=== PATIENT | female | born 1950 | race Asian ===

== ENCOUNTER 2016-05-26 22:15 | Inpatient (IN) | payer MEDICARE, MEDICAID ==
[~2016-05-26] VITALS: Ht 152.4 cm; Wt 36.3 kg
[2016-05-26 22:23] VITALS: BP 115/73
[2016-05-26] MEDS ORDERED: levETIRAcetam 500 MG in D5W 110 ML IVPB ONE (22:30)
[2016-05-26] MEDS ORDERED: levETIRAcetam 500mg vial IV ONE (22:34)
--- NOTE | 2016-05-26 22:35 | Emergency Room Report ---
History of Present Illness General Chief Complaint: Seizure Source: Family Member, Medical Record, EMS Present Illness HPI This is a 65-year-old Pashto female with a past medical history of developmental delay and seizure. She presents with chief complaint of seizure. Was tonic-clonic in activity. One time at home and also witnessed by EMS. They gave her Versed for sedation. Family does not know her medication at this moment in time. She was admitted to [facility] in November 2015. Was able to checked her chart there and she was on Keppra. There is no fever or chills but no nausea no vomiting. No change in medication. She is compliant. History is through EMS and her sister and nephew. Allergies: Coded Allergies: LEVOFLOXACIN (Verified Allergy, Unknown, 05/26/16) Patient History Past Medical History: see triage record, old chart reviewed, seizures Past Surgical History: other Pertinent Family History: none Social History: Denies: smoking Now: No Immunizations: other Reviewed Nursing Documentation: PMH: Agreed, PSxH: Agreed Nursing Documentation-PMH Hx Hypertension: Yes Hx Seizures: Yes Review of Systems Eye: Denies: blurred vision, eye pain ENT: Denies: ear pain, nose congestion, throat swelling Respiratory: Denies: cough, shortness of breath Cardiovascular: Denies: chest pain, palpitations Gastrointestinal: Denies: abdominal pain, diarrhea, nausea, vomiting Musculoskeletal: Denies: back pain, joint pain Skin: Denies: rash Neurological: Denies: headache, numbness Endocrine: Denies: increased thirst, increased urine Hematologic/Lymphatic: Denies: easy bruising All Other Systems: negative except mentioned in HPI Physical Exam Vital Signs Date Time Temp Pulse Resp B/P Pulse Ox O2 Delivery O2 Flow Rate FiO2 05/26/16 22:05 100.9 105 25 118/64 98 Room Air vitals with low-grade fever Sp02 EP Interpretation: reviewed, normal General Appearance: thin Head: normocephalic, atraumatic Eyes: bilateral eye EOMI, bilateral eye PERRL ENT: hearing grossly normal, normal pharynx Neck: full range of motion, supple, no meningismus Respiratory: chest non-tender, lungs clear, normal breath sounds Cardiovascular #1: regular rate, rhythm, no murmur Gastrointestinal: normal bowel sounds, non tender, no mass, no organomegaly, no bruit, non-distended Musculoskeletal: back normal, normal range of motion Neurologic: grossly normal Skin: warm/dry Procedures Critical Care Time Critical Care Time Critical care is mandated in this patient who presented with status epilepticus. Patient require my urgent intervention to attenuate the risks of neurological collapse which may lead to cardiovascular collapse and . Critical care time is 35 minutes excluding any reportable procedure. Critical care time included evaluation, multiple reevaluation, looking at old charts, interpreting laboratory and diagnostic data, discussing case with patient and family and consultants, and charting. Medical Decision Making Diagnostic Impression: Primary Impression: Epileptic seizure, generalized Additional Impressions: UTI (urinary tract infection) Qualified Codes: N30.00 - Acute cystitis without hematuria Anemia of chronic illness Status epilepticus ER Course Patient presents with seizure activity. This most likely secondary to infection. I gave her antibiotics for her UTI. I also gave her extra dose of Keppra. Family finally brought her medication and she is currently on Depakote also. I gave her a dose of Depakote here. She was doing well for several hours. Was becoming more responsive and back to baseline. She actually slept through the night. Her sister came to pick her up at 5:30 AM. She then proceeded to have a tonic-clonic seizure activity witnessed by me and her sister. This broke with Ativan. Because of this, I will keep her in the hospital for further monitoring. Laboratory Tests Test 05/26/16 22:20 05/26/16 23:13 White Blood Count 11.6 K/UL (4.8-10.8) H Red Blood Count 3.68 M/UL (4.20-5.40) L Hemoglobin 11.5 G/DL (12.0-16.0) L Hematocrit 36.7 % (37.0-47.0) L Mean Corpuscular Volume 100 FL (80-99) H Mean Corpuscular Hemoglobin 31.2 PG (27.0-31.0) H Mean Corpuscular Hemoglobin Concent 31.3 G/DL (32.0-36.0) L Red Cell Distribution Width 12.3 % (11.6-14.8) Platelet Count 133 K/UL (150-450) L Mean Platelet Volume 7.9 FL (6.5-10.1) Neutrophils (%) (Auto) 79.3 % (45.0-75.0) H Lymphocytes (%) (Auto) 10.3 % (20.0-45.0) L Monocytes (%) (Auto) 8.6 % (1.0-10.0) Eosinophils (%) (Auto) 0.1 % (0.0-3.0) Basophils (%) (Auto) 1.7 % (0.0-2.0) Sodium Level 140 mEQ/L (135-145) Potassium Level 3.7 mEQ/L (3.4-4.9) Chloride Level 100 mEQ/L (98-107) Carbon Dioxide Level 25 mEQ/L (20-30) Anion Gap 15 (5-15) Blood Urea Nitrogen 15 mg/dL (7-23) Creatinine 0.8 mg/dL (0.5-0.9) Estimat Glomerular Filtration Rate > 60 mL/min (>60) Glucose Level 151 mg/dL (74-106) H Calcium Level 9.0 mg/dL (8.6-10.2) Total Bilirubin 0.4 mg/dL (0.0-1.2) Aspartate Amino Transf (AST/SGOT) 28 U/L (5-40) Alanine Aminotransferase (ALT/SGPT) 9 U/L (3-33) Alkaline Phosphatase 46 U/L (35-104) Total Protein 6.9 g/dL (6.6-8.7) Albumin 3.6 g/dL (3.5-5.2) Globulin 3.3 g/dL Albumin/Globulin Ratio 1.0 (1.0-2.7) Urine Color Pale yellow Urine Appearance Slightly cloudy Urine pH 8 (4.5-8.0) Urine Specific [place] 1.010 (1.005-1.035) Urine Protein 1+ (NEGATIVE) H Urine Glucose (UA) Negative (NEGATIVE) Urine Ketones Negative (NEGATIVE) Urine Occult Blood 5+ (NEGATIVE) H Urine Nitrite Positive (NEGATIVE) H Urine Bilirubin Negative (NEGATIVE) Urine Urobilinogen Normal MG/DL (0.0-1.0) Urine Leukocyte Esterase 1+ (NEGATIVE) H Urine RBC 30-40 /HPF (0 - 2) H Urine WBC 5-10 /HPF (0 - 2) H Urine Squamous Epithelial Cells Few /LPF (NONE/OCC) Urine Bacteria Many /HPF (NONE) H Lab Results Impression labs unremarkable EKG Diagnostic Results Rate: normal Rhythm: NSR ST Segments: no acute changes Rhythm Strip Diag. Results EP Interpretation: yes Rate: 88 Rhythm: NSR, no PVC's, no ectopy Last Vital Signs Date Time Temp Pulse Resp B/P Pulse Ox O2 Delivery O2 Flow Rate FiO2 05/26/16 22:23 98.5 97 22 115/73 98 Room Air Status: improved Disposition: ADMITTED INPATIENT Condition: Serious OWEN LAGUERRE M.D. May 26, 2016 22:35
[2016-05-26 22:46] LABS: BASOPHILS % (AUTO) 1.7 % (0.0-2.0); EOSINOPHILS % (AUTO) 0.1 % (0.0-3.0); LYMPHOCYTES % (AUTO) 10.3 % (20.0-45.0); MEAN CORPUSCULAR HEMOGLOBIN 31.2 PG (27.0-31.0); MEAN CORPUSCULAR HGB CONC 31.3 G/DL (32.0-36.0); MEAN CORPUSCULAR VOLUME 100 FL (80-99); MEAN PLATELET VOLUME 7.9 FL (6.5-10.1); MONOCYTES % (AUTO) 8.6 % (1.0-10.0); NEUTROPHILS % (AUTO) 79.3 % (45.0-75.0); PLATELET COUNT 133 K/UL (150-450); RED BLOOD COUNT 3.68 M/UL (4.20-5.40); RED CELL DISTRIBUTION WIDTH 12.3 % (11.6-14.8); WHITE BLOOD COUNT 11.6 K/UL (4.8-10.8)
[2016-05-26 23:02] LABS: ALANINE AMINOTRANSFERASE 9 U/L (3-33); ANION GAP 15 (5-15); ASPARTATE AMINO TRANSFERASE 28 U/L (5-40); CARBON DIOXIDE 25 mEQ/L (20-30); CHLORIDE 100 mEQ/L (98-107); CREATININE 0.8 mg/dL (0.5-0.9); GLOMERULAR FILTRATION RATE > 60 mL/min (>60); HEMOLYSIS 11; POTASSIUM 3.7 mEQ/L (3.4-4.9); SODIUM 140 mEQ/L (135-145); TOTAL PROTEIN 6.9 g/dL (6.6-8.7)
[2016-05-26] MEDS ORDERED: PANTOPRAZOLE SO40 MG ORAL (23:05)
[2016-05-26] MEDS ORDERED: DEPAKOTE ER500 MG ORAL (23:05)
[2016-05-26] MEDS ORDERED: LEVETIRACETAM500 MG ORAL (23:06)
[2016-05-26] MEDS ORDERED: ASPIR 8181 MG ORAL (23:07)
[2016-05-26] MEDS ORDERED: ATORVASTATIN CA20 MG ORAL (23:07)
[2016-05-26 23:21] LABS: KETONES,URINE NEGATIVE (NEGATIVE); LEUKOCYTE ESTERASE ,URINE 1+ (NEGATIVE); NITRITE,URINE POSITIVE (NEGATIVE); PH,URINE 8 (4.5-8.0); PROTEIN,URINE 1+ (NEGATIVE); UROBILINOGEN,URINE NORMAL MG/DL (0.0-1.0)
[2016-05-26 23:29] VITALS: BP 130/68
[2016-05-26 23:34] LABS: APPEARANCE,URINE SLIGHTLY CLOUDY
[2016-05-26 23:35] LABS: BACTERIA,URINE MANY /HPF; RBC,URINE 30-40 /HPF (0 - 2); SQUAMOUS EPITHELIAL CELL,UR FEW /LPF (NONE/OCC)
[2016-05-26] MEDS ORDERED: cefTRIAXone 1 GM in NS 55 ML IVPB ONE (23:45)
[2016-05-27] VITALS (9 sets, daily range): BP systolic 114–140; BP diastolic 7–94
[2016-05-27] MEDS ORDERED: LORazepam Inj 2mg/ml 1ml ONE (05:23)
[2016-05-27] MEDS ORDERED: LORazepam Inj 2mg/ml 1ml IV ONE (05:30)
[2016-05-27] MEDS: Aspirin Baby 81mg ORAL SCH (08:59)
[2016-05-27] MEDS: Heparin 5000 units/ml inj SUBQ SCH ×2 (08:59→22:02)
[2016-05-27] MEDS: Zosyn 3.375gm q8h **Extended infusion IVPB SCH ×4 (10:38→18:34)
--- NOTE | 2016-05-27 11:09 | History & Physical ---
History and Physical History & Physicial HP dictated # [id number] TIMUR RICE May 27, 2016 11:09
[2016-05-27] MEDS: D5 1/2NS 1,000 ML IV SCH (11:36)
--- NOTE | 2016-05-27 12:42 | Neurology Progress Note ---
Objective Physical Exam Last Vital Signs Date Time Temp Pulse Resp B/P Pulse Ox O2 Delivery O2 Flow Rate FiO2 05/27/16 11:49 99.1 87 18 135/78 99 Room Air Laboratory Tests Test 05/26/16 22:20 05/26/16 23:13 05/27/16 05:27 White Blood Count 11.6 K/UL (4.8-10.8) H Red Blood Count 3.68 M/UL (4.20-5.40) L Hemoglobin 11.5 G/DL (12.0-16.0) L Hematocrit 36.7 % (37.0-47.0) L Mean Corpuscular Volume 100 FL (80-99) H Mean Corpuscular Hemoglobin 31.2 PG (27.0-31.0) H Mean Corpuscular Hemoglobin Concent 31.3 G/DL (32.0-36.0) L Red Cell Distribution Width 12.3 % (11.6-14.8) Platelet Count 133 K/UL (150-450) L Mean Platelet Volume 7.9 FL (6.5-10.1) Neutrophils (%) (Auto) 79.3 % (45.0-75.0) H Lymphocytes (%) (Auto) 10.3 % (20.0-45.0) L Monocytes (%) (Auto) 8.6 % (1.0-10.0) Eosinophils (%) (Auto) 0.1 % (0.0-3.0) Basophils (%) (Auto) 1.7 % (0.0-2.0) Sodium Level 140 mEQ/L (135-145) Potassium Level 3.7 mEQ/L (3.4-4.9) Chloride Level 100 mEQ/L (98-107) Carbon Dioxide Level 25 mEQ/L (20-30) Anion Gap 15 (5-15) Blood Urea Nitrogen 15 mg/dL (7-23) Creatinine 0.8 mg/dL (0.5-0.9) Estimat Glomerular Filtration Rate > 60 mL/min (>60) Glucose Level 151 mg/dL (74-106) H Calcium Level 9.0 mg/dL (8.6-10.2) Total Bilirubin 0.4 mg/dL (0.0-1.2) Aspartate Amino Transf (AST/SGOT) 28 U/L (5-40) Alanine Aminotransferase (ALT/SGPT) 9 U/L (3-33) Alkaline Phosphatase 46 U/L (35-104) Total Protein 6.9 g/dL (6.6-8.7) Albumin 3.6 g/dL (3.5-5.2) Globulin 3.3 g/dL Albumin/Globulin Ratio 1.0 (1.0-2.7) Urine Color Pale yellow Urine Appearance Slightly cloudy Urine pH 8 (4.5-8.0) Urine Specific [place] 1.010 (1.005-1.035) Urine Protein 1+ (NEGATIVE) H Urine Glucose (UA) Negative (NEGATIVE) Urine Ketones Negative (NEGATIVE) Urine Occult Blood 5+ (NEGATIVE) H Urine Nitrite Positive (NEGATIVE) H Urine Bilirubin Negative (NEGATIVE) Urine Urobilinogen Normal MG/DL (0.0-1.0) Urine Leukocyte Esterase 1+ (NEGATIVE) H Urine RBC 30-40 /HPF (0 - 2) H Urine WBC 5-10 /HPF (0 - 2) H Urine Squamous Epithelial Cells Few /LPF (NONE/OCC) Urine Bacteria Many /HPF (NONE) H Valproic Acid (Depakene) Level 42 ug/mL (50-100) L Impression/Recommendations Problems: (1) Epileptic seizure, generalized (2) UTI (urinary tract infection) (3) Anemia of chronic illness Status: not improved Recommendations #[id number] keppra 750 bid depakote 500bid EEG fall precaution DAVID HURST May 27, 2016 12:42
[2016-05-27] MEDS: Depakote ER 500mg tab ORAL SCH ×2 (13:30→21:59)
[2016-05-27] MEDS ORDERED: LORazepam Inj 2mg/ml 1ml IV PRN (17:00)
--- NOTE | 2016-05-27 18:18 | History and Physical Report ---
DATE OF ADMISSION: 05/27/2016 CHIEF COMPLAINT: The patient had two seizures at home. HISTORY OF PRESENT ILLNESS: This is a 65-year-old Spanish female with history of developmental abnormalities. The patient has had seizures since age [age]. She lives with her sister. The sister noticed that she had two episodes of tonic colonic seizure [id number] and lasted about 20 minutes. Paramedics were called. The patient was brought into the emergency room and was admitted. PAST MEDICAL HISTORY: Noncontributory except for hypertension. MEDICATIONS: Reviewed in the EMR. ALLERGIES: Levofloxacin. SOCIAL HISTORY: The patient lives with sister as mentioned. No history of smoking or alcohol abuse. REVIEW OF SYSTEMS: Unobtainable. PHYSICAL EXAMINATION: GENERAL: The patient is a 65-year-old female, in no acute distress, lethargic. VITAL SIGNS: Blood pressure is 118/64, pulse 105, respiratory rate is 25, and temperature a 100.9 degrees. HEENT: [place] conjunctivae. Anicteric sclerae. NECK: Supple. LUNGS: Clear to auscultation. HEART: S1 and S2 without murmurs or rubs. ABDOMEN: Soft and nontender. EXTREMITIES: No cyanosis or edema. LABORATORY AND DIAGNOSTIC DATA: The chemistry panel shows serum sodium 140, potassium 3.7, chloride 100, CO2 25, BUN 15, creatinine 0.8, and blood sugar is 151. CBC shows a WBC of 11.6, hematocrit 36.7, hemoglobin 11.5, and platelets 133,000. Urinalysis shows 30 to 40 RBCs, 5 to 10 WBCs per high-power field and many bacteria. ASSESSMENT: This is a 65-year-old Spanish female was admitted with seizures with a history of seizures before. She has also urinary tract infection and fevers. PLAN: The patient will be on IV antibiotics, IV fluids and Neurology consultation will be obtained to adjust the the patient's medications. The case was discussed with sister extensively. René Dunn M.D. DR: MARSHALL JOB#: [id number] CC:
--- NOTE | 2016-05-27 20:58 | Consultation ---
DATE OF CONSULTATION: 05/27/2016 NEUROLOGICAL CONSULTATION REQUESTING PHYSICIAN: René Dunn M.D. HISTORY OF PRESENT ILLNESS: This is a 65-year-old female, seen in neurological consultation to evaluate the exacerbation of chronic seizure disorder. The patient unable to provide with a history, it was obtained from medical records and conversation with the family. It is known that the patient is suffering from mental retardation, family define this "like she is 3 years old." She has a lifelong history of seizures, which what they described as at times generalized, but most often brief small seizures. She was brought to this hospital after having a generalized clonic-tonic seizure episode at home and then witnessed by EMS. The patient was given for sedation and with this, there were no further seizure noted. Blood pressure on admission 118/64 and temperature 100.9. Her EKG normal sinus rhythm. No premature ventricular contraction. No ectopies. Laboratory work was obtained revealing CBC study with WBC 11.6, hemoglobin 11.5, hematocrit 36.7, and platelets 133,000. Chemistry panel unremarkable except blood sugar 151, toxicology panel valproic acid of 42, and urinalysis with 5 to 10 WBCs, 1+ leukocyte esterase and 1+ protein. PAST MEDICAL HISTORY: The patient is known to have mental retardation, chronic seizure disorder, and hyperlipidemia. MEDICATIONS: Prior to admission included, 1. Aspirin. 2. Atorvastatin 20 mg daily. 3. Depakote 500 mg at bedtime. 4. Keppra 500 mg twice a day. 5. Pantoprazole 40 mg daily. ALLERGIES: Levofloxacin. FAMILY HISTORY: Noncontributory. SOCIAL HISTORY: The patient lives with her family. She is known to have to be able to perform all activities of daily living, she is compliant with her treatment. REVIEW OF SYSTEMS: Unable to obtain due the patient's status. PHYSICAL EXAMINATION: GENERAL: A well-developed, somewhat cachectic appearing female, lying in bed, and asleep. VITAL SIGNS: Now stable. Blood pressure 135/78 and temperature 99.1. HEENT: Head, normocephalic. No evidence of injuries. Eyes, ears, and throat are clear. NECK: Neck is rigid in all directions. MUSCULOSKELETAL EXAMINATION: No deformities noted. Peripheral pulses 1+ symmetric. MENTAL STATUS: The patient is very lethargic. Would not open eyes. She would not follow commands, given her [place] language. CRANIAL NERVE II: Pupils both responding to light and accommodation. Extraocular movements full range. CRANIAL NERVE V: Normal corneal responses. CRANIAL NERVE VII: No facial asymmetry. CRANIAL NERVE VIII: Grossly normal hearing. . CRANIAL NERVE IX THROUGH XII: Tongue is in midline. Symmetric palate elevation. MOTOR EXAMINATION: Diffuse rigidity. Resisting with a good strength in all limbs. The patient tends to keep legs flexed. Deep tendon reflexes depressed bilaterally. Plantar response is mute. SENSORY EXAMINATION: No response to pin stimulation. Gait not tested. IMPRESSION: 1. This is a 65-year-old female with a chronic seizure disorder presenting now with exacerbation. 2. Fever, urinary tract infection, rule out sepsis. 3. Anemia. 4. History of hyperlipidemia. RECOMMENDATION: 1. Increase Keppra 750 mg b.i.d. 2. Depakote 500 mg b.i.d. 3. EEG. 4. Ativan 1 mg q.1 hour p.r.n. for breakthrough seizure. 5. Fall precaution. Discussed the patient's status with medical staff. Thank you for allowing me to see this interesting patient in neurological consultation. Erasmo Warner M.D. DR: ALLIE JOB#: [id number] CC:
[2016-05-27] MEDS ORDERED: Depakote ER 500mg tab ORAL SCH (21:00)
[2016-05-27] MEDS ORDERED: Depakote ER 500mg tab ORAL ONE (21:15)
[2016-05-27] MEDS: Atorvastatin 20mg tab ORAL SCH (22:00)
[2016-05-28 00:31] VITALS: BP 124/74
[2016-05-28] MEDS: D5 1/2NS 1,000 ML IV SCH ×2 (01:47→15:33)
[2016-05-28] MEDS: Zosyn 3.375gm q8h **Extended infusion IVPB SCH ×6 (01:48→16:33)
[2016-05-28 04:03] VITALS: BP 113/72
[2016-05-28 05:37] LABS: ALANINE AMINOTRANSFERASE 6 U/L (3-33); ANION GAP 14 (5-15); ASPARTATE AMINO TRANSFERASE 25 U/L (5-40); CALCIUM 8.1 mg/dL (8.6-10.2); CARBON DIOXIDE 24 mEQ/L (20-30); CHLORIDE 101 mEQ/L (98-107); CREATININE 0.8 mg/dL (0.5-0.9); GLOMERULAR FILTRATION RATE > 60 mL/min (>60); HEMOLYSIS 5; POTASSIUM 3.3 mEQ/L (3.4-4.9); SODIUM 139 mEQ/L (135-145); TOTAL PROTEIN 6.2 g/dL (6.6-8.7)
[2016-05-28 07:38] VITALS: BP 112/62
[2016-05-28] MEDS: Heparin 5000 units/ml inj SUBQ SCH ×2 (08:43→20:34)
[2016-05-28] MEDS: Depakote ER 500mg tab ORAL SCH (09:35)
[2016-05-28] MEDS: Aspirin Baby 81mg ORAL SCH (09:35)
[2016-05-28 11:14] VITALS: BP 109/65
[2016-05-28] MEDS ORDERED: KCl 10% 40mEq/30ml liquid ORAL ONE ×2 (12:00→16:00)
--- NOTE | 2016-05-28 12:25 | Neurology Progress Note ---
Interim History Interim History ROS Limited/Unobtainable: Yes Complaints: nonverbal Events: recurrent sz noted Objective Physical Exam Last Vital Signs Date Time Temp Pulse Resp B/P Pulse Ox O2 Delivery O2 Flow Rate FiO2 05/28/16 11:14 97.9 79 18 109/65 95 Room Air Laboratory Tests Test 05/28/16 03:05 Sodium Level 139 mEQ/L (135-145) Potassium Level 3.3 mEQ/L (3.4-4.9) L Chloride Level 101 mEQ/L (98-107) Carbon Dioxide Level 24 mEQ/L (20-30) Anion Gap 14 (5-15) Blood Urea Nitrogen 11 mg/dL (7-23) Creatinine 0.8 mg/dL (0.5-0.9) Estimat Glomerular Filtration Rate > 60 mL/min (>60) Glucose Level 126 mg/dL (74-106) H Calcium Level 8.1 mg/dL (8.6-10.2) L Total Bilirubin 0.5 mg/dL (0.0-1.2) Aspartate Amino Transf (AST/SGOT) 25 U/L (5-40) Alanine Aminotransferase (ALT/SGPT) 6 U/L (3-33) Alkaline Phosphatase 51 U/L (35-104) Total Protein 6.2 g/dL (6.6-8.7) L Albumin 3.2 g/dL (3.5-5.2) L Globulin 3.0 g/dL Albumin/Globulin Ratio 1.0 (1.0-2.7) General: no acute distress, other - cachectic Head: normocophalic, atraumatic Neck: no rigidity Neurologic Exam Mental Status: awake, other - very confused poor verbal output Speech: other Language: other Cranial Nerve II: fundus normal, visual colon, no papilledema Cranial Nerves III, IV, : PERRLA, EOMI, pupils Cranial Nerve V: normal facial sensations, temporales function normal, masseters function normal, pterygoids function normal Cranial Nerve VII: no facial asymmetry, normal facial expressions Cranial Nerve VIII: normal hearing, no nystagmus Cranial Nerve IX: normal palate elevation, gag response Cranial Nerve X: no voice hoarseness Cranial Nerve XI: SCM symmetric, trapezii function normal Cranial Nerve XII: tongue midline, no tongue atrophy/fasciculations Motor System: no involuntary movement, no muscle wasting, other - diffuse rigidity Sensory: normal pinprick Coordination: other Deep Tendon Reflexes: 0 ankle (L), 0 ankle (R), 0 bicep (L), 0 bicep (R), 0 brachioradialis (L), 0 brachioradialis (R), 0 knee (L), 0 knee (R), 0 tricep (L) , 0 tricep (R) Reflexes: mute plantar (L), mute plantar (R) Impression/Recommendations Problems: (1) chronic seizure disorder intractable, exacerbation (2) UTI (urinary tract infection) (3) Anemia of chronic illness Status: not improved, unchanged Recommendations #[id number] keppra 750 bid depakote 500bid EEG fall precaution blood level to adjust doses to max. ativan 1mg q 1hr prn DAVID HURST May 28, 2016 12:25
--- NOTE | 2016-05-28 15:13 | General Progress Note ---
Assessment/Plan Problem List: (1) Epileptic seizure, generalized ICD Codes: G40.309 - Generalized idiopathic epilepsy and epileptic syndromes, not intractable, without status epilepticus SNOMED: 41671721 (2) UTI (urinary tract infection) ICD Codes: N39.0 - Urinary tract infection, site not specified SNOMED: 93912664 Qualifiers: Qualified Codes: N30.00 - Acute cystitis without hematuria Assessment/Plan adjust seizure meds abxs await final urine culture results Subjective Allergies: Coded Allergies: LEVOFLOXACIN (Verified Allergy, Unknown, 05/26/16) Subjective In NAD Objective Last 24 Hour Vital Signs Date Time Temp Pulse Resp B/P Pulse Ox O2 Delivery O2 Flow Rate FiO2 05/28/16 12:00 81 05/28/16 11:14 97.9 79 18 109/65 95 Room Air 05/28/16 08:00 81 05/28/16 07:38 97.5 79 18 112/62 95 Room Air 05/28/16 04:03 98.4 83 17 113/72 93 Room Air 05/28/16 04:00 82 05/28/16 00:31 98.4 104 19 124/74 93 Room Air 05/28/16 00:00 87 05/27/16 20:00 98.0 96 20 114/66 97 Room Air 05/27/16 20:00 92 05/27/16 16:00 97.0 92 20 128/65 97 Room Air 05/27/16 16:00 92 Intake and Output 05/27/16 05/28/16 19:00 07:00 Intake Total 110.0 ml 672.5 ml Output Total 1000 ml 900 ml Balance -890.0 ml -227.5 ml IV Total 110.0 ml 672.5 ml Output Urine Total 1000 ml 900 ml Laboratory Tests 05/28/16 03:05: Sodium Level 139, Potassium Level 3.3L, Chloride Level 101, Carbon Dioxide Level 24, Anion Gap 14, Blood Urea Nitrogen 11, Creatinine 0.8, Estimat Glomerular Filtration Rate > 60, Glucose Level 126H, Calcium Level 8.1L, Total Bilirubin 0.5, Aspartate Amino Transf (AST/SGOT) 25, Alanine Aminotransferase ( ALT/SGPT) 6, Alkaline Phosphatase 51, Total Protein 6.2L, Albumin 3.2L, Globulin 3.0, Albumin/Globulin Ratio 1.0 Height (Feet): 5 Height (Inches): 0.00 Weight (Pounds): 80 Cardiovascular: normal rate Respiratory/Chest: lungs clear Edema: no edema noted Generalized TIMUR RICE May 28, 2016 15:13
[2016-05-28 16:00] VITALS: BP 110/72
[2016-05-28] MEDS: Dronabinol 2.5mg Cap ORAL SCH (17:15)
[2016-05-28 20:00] VITALS: BP 118/70
[2016-05-28] MEDS: levETIRAcetam 500mg/5ml Liquid ORAL SCH (20:28)
[2016-05-28] MEDS: Atorvastatin 20mg tab ORAL SCH (20:28)
[2016-05-28] MEDS: Valproic Acid 250mg/5ml Liquid ORAL SCH (20:29)
[2016-05-29] VITALS: BP 106/70
[2016-05-29] MEDS: Zosyn 3.375gm q8h **Extended infusion IVPB SCH ×6 (02:15→17:50)
[2016-05-29] MEDS: D5 1/2NS 1,000 ML IV SCH ×2 (04:00→13:51)
[2016-05-29 04:10] VITALS: BP 114/72
[2016-05-29 07:35] VITALS: BP 107/71
[2016-05-29] MEDS: Heparin 5000 units/ml inj SUBQ SCH ×2 (08:13→21:00)
[2016-05-29] MEDS: Dronabinol 2.5mg Cap ORAL SCH ×2 (08:14→17:50)
[2016-05-29] MEDS: Aspirin Baby 81mg ORAL SCH (08:14)
[2016-05-29] MEDS: levETIRAcetam 500mg/5ml Liquid ORAL SCH ×2 (08:14→21:54)
[2016-05-29] MEDS: Valproic Acid 250mg/5ml Liquid ORAL SCH ×2 (08:14→21:55)
[2016-05-29] MEDS ORDERED: NS 275ml ONE (09:05)
[2016-05-29] MEDS ORDERED: D5 1/2NS 1000ml IV ONE (09:05)
[2016-05-29 11:36] VITALS: BP 101/66
--- NOTE | 2016-05-29 11:55 | General Progress Note ---
Assessment/Plan Problem List: (1) Epileptic seizure, generalized ICD Codes: G40.309 - Generalized idiopathic epilepsy and epileptic syndromes, not intractable, without status epilepticus SNOMED: 74847156 (2) UTI (urinary tract infection) ICD Codes: N39.0 - Urinary tract infection, site not specified SNOMED: 19968830 Qualifiers: Qualified Codes: N30.00 - Acute cystitis without hematuria Assessment/Plan adjust seizure meds abxs DC in AM if ok with neurologist Subjective Allergies: Coded Allergies: LEVOFLOXACIN (Verified Allergy, Unknown, 05/26/16) Subjective In NAD Objective Last 24 Hour Vital Signs Date Time Temp Pulse Resp B/P Pulse Ox O2 Delivery O2 Flow Rate FiO2 05/29/16 11:36 97.0 69 18 101/66 97 Room Air 05/29/16 08:00 70 05/29/16 07:35 97.3 90 18 107/71 96 Room Air 05/29/16 04:10 97.0 68 20 114/72 99 Room Air 05/29/16 04:00 72 05/29/16 00:00 71 05/29/16 00:00 97.0 76 20 106/70 96 Room Air 05/28/16 20:00 97.0 75 20 118/70 100 Room Air 05/28/16 20:00 81 05/28/16 16:00 98.2 76 20 110/72 97 Room Air 05/28/16 16:00 82 05/28/16 12:00 81 Intake and Output 05/28/16 05/29/16 19:00 07:00 Intake Total 710.0 ml 770.0 ml Output Total 1400 ml 650 ml Balance -690.0 ml 120.0 ml Intake Oral 285 ml IV Total 710.0 ml 485.0 ml Output Urine Total 1400 ml 650 ml Laboratory Tests 05/29/16 06:28: Valproic Acid (Depakene) Level 78 Height (Feet): 5 Height (Inches): 0.00 Weight (Pounds): 80 Cardiovascular: normal rate Respiratory/Chest: lungs clear Edema: no edema noted TIMUR Holly May 29, 2016 11:55
--- NOTE | 2016-05-29 13:08 | Neurology Progress Note ---
Interim History Interim History ROS Limited/Unobtainable: Yes Complaints: nonverbal Events: no sz noted Objective Physical Exam Last Vital Signs Date Time Temp Pulse Resp B/P Pulse Ox O2 Delivery O2 Flow Rate FiO2 05/29/16 12:00 67 05/29/16 11:36 97.0 18 101/66 97 Room Air Laboratory Tests Test 05/29/16 06:28 Valproic Acid (Depakene) Level 78 ug/mL (50-100) General: no acute distress, other - cachectic Head: normocophalic, atraumatic Neck: no rigidity Neurologic Exam Mental Status: awake, other - very confused poor verbal output awake have a eye contact Speech: other Language: other Cranial Nerve II: fundus normal, visual colon, no papilledema Cranial Nerves III, IV, : PERRLA, EOMI, pupils Cranial Nerve V: normal facial sensations, temporales function normal, masseters function normal, pterygoids function normal Cranial Nerve VII: no facial asymmetry, normal facial expressions Cranial Nerve VIII: normal hearing, no nystagmus Cranial Nerve IX: normal palate elevation, gag response Cranial Nerve X: no voice hoarseness Cranial Nerve XI: SCM symmetric, trapezii function normal Cranial Nerve XII: tongue midline, no tongue atrophy/fasciculations Motor System: no involuntary movement, no muscle wasting, other - diffuse rigidity Sensory: normal pinprick Coordination: other Deep Tendon Reflexes: 0 ankle (L), 0 ankle (R), 0 bicep (L), 0 bicep (R), 0 brachioradialis (L), 0 brachioradialis (R), 0 knee (L), 0 knee (R), 0 tricep (L) , 0 tricep (R) Reflexes: mute plantar (L), mute plantar (R) Impression/Recommendations Problems: (1) chronic seizure disorder intractable, exacerbation (2) UTI (urinary tract infection) (3) Anemia of chronic illness Status: doing well Recommendations #[id number] keppra 750 bid depakote 500bid EEG fall precaution blood level to adjust doses to max. ativan 1mg q 1hr prn neuro stable for d/c in DAVID Sánchez May 29, 2016 13:08
[2016-05-29 16:00] VITALS: BP 107/68
[2016-05-29 19:00] VITALS: BP 107/74
[2016-05-29] MEDS: Atorvastatin 20mg tab ORAL SCH (21:55)
[2016-05-30] VITALS: BP 112/59
[2016-05-30] MEDS: Zosyn 3.375gm q8h **Extended infusion IVPB SCH ×6 (02:18→17:41)
[2016-05-30 04:00] VITALS: BP 114/65
[2016-05-30] MEDS: D5 1/2NS 1,000 ML IV SCH ×2 (06:42→20:15)
[2016-05-30 08:00] VITALS: BP 106/68
[2016-05-30] MEDS: Heparin 5000 units/ml inj SUBQ SCH ×2 (08:16→20:22)
[2016-05-30] MEDS: Aspirin Baby 81mg ORAL SCH (08:17)
[2016-05-30] MEDS: Dronabinol 2.5mg Cap ORAL SCH ×2 (08:17→17:40)
[2016-05-30] MEDS: Valproic Acid 250mg/5ml Liquid ORAL SCH ×2 (08:17→20:13)
[2016-05-30] MEDS: levETIRAcetam 500mg/5ml Liquid ORAL SCH ×2 (08:17→20:15)
[2016-05-30] MEDS ORDERED: D5 1/2NS 1000ml IV ONE (09:01)
[2016-05-30] MEDS ORDERED: NS 275ml ONE (09:01)
[2016-05-30 12:00] VITALS: BP 105/59
--- NOTE | 2016-05-30 12:26 | General Progress Note ---
Assessment/Plan Problem List: (1) Epileptic seizure, generalized ICD Codes: G40.309 - Generalized idiopathic epilepsy and epileptic syndromes, not intractable, without status epilepticus SNOMED: 19403320 (2) UTI (urinary tract infection) ICD Codes: N39.0 - Urinary tract infection, site not specified SNOMED: 49290840 Qualifiers: Qualified Codes: N30.00 - Acute cystitis without hematuria Assessment/Plan adjust seizure meds abxs DC tomorrow with home health Subjective Allergies: Coded Allergies: LEVOFLOXACIN (Verified Allergy, Unknown, 05/26/16) Subjective In NAD Objective Last 24 Hour Vital Signs Date Time Temp Pulse Resp B/P Pulse Ox O2 Delivery O2 Flow Rate FiO2 05/30/16 08:00 98.2 60 20 106/68 97 Room Air 05/30/16 08:00 65 05/30/16 04:00 67 05/30/16 04:00 96.6 70 18 114/65 98 Room Air 05/30/16 00:00 66 05/30/16 00:00 97.2 67 18 112/59 96 Room Air 05/29/16 20:00 73 05/29/16 19:00 97.3 70 18 107/74 96 Room Air 05/29/16 16:00 97.2 75 17 107/68 95 Room Air 05/29/16 16:00 69 Intake and Output 05/29/16 05/30/16 19:00 07:00 Intake Total 932.5 ml 1351.0 ml Output Total 300 ml 1225 ml Balance 632.5 ml 126.0 ml Intake Oral 120 ml 600 ml IV Total 812.5 ml 751.0 ml Output Urine Total 300 ml 1225 ml Laboratory Tests 05/30/16 05:35: Valproic Acid (Depakene) Level 95 Height (Feet): 5 Height (Inches): 0.00 Weight (Pounds): 80 Cardiovascular: normal rate Respiratory/Chest: lungs clear TIMUR RICE May 30, 2016 12:26
[2016-05-30 16:00] VITALS: BP 106/69
[2016-05-30 20:00] VITALS: BP 118/70
[2016-05-30] MEDS: Atorvastatin 20mg tab ORAL SCH (20:11)
[2016-05-31] VITALS: BP 111/71
[2016-05-31] MEDS: Zosyn 3.375gm q8h **Extended infusion IVPB SCH ×4 (02:13→10:00)
[2016-05-31 04:00] VITALS: BP 121/74
[2016-05-31 07:28] VITALS: BP 124/71
[2016-05-31] MEDS: Heparin 5000 units/ml inj SUBQ SCH (08:37)
[2016-05-31] MEDS: levETIRAcetam 500mg/5ml Liquid ORAL SCH (08:47)
[2016-05-31] MEDS: Aspirin Baby 81mg ORAL SCH (08:48)
[2016-05-31] MEDS: Valproic Acid 250mg/5ml Liquid ORAL SCH (08:48)
[2016-05-31] MEDS: Dronabinol 2.5mg Cap ORAL SCH (08:48)
[2016-05-31] MEDS: D5 1/2NS 1,000 ML IV SCH (08:50)
[2016-05-31] MEDS ORDERED: KEPPRA LIQ100 MG/1 M ORAL (10:03)
[2016-05-31] MEDS ORDERED: DEPAKENE L250 MG/5 M ORAL (10:03)
--- NOTE | 2016-05-31 10:08 | Consultation ---
Consult Note Assessment/Plan DC dictated # [id number] TIMUR RICE May 31, 2016 10:08
[2016-05-31] MEDS ORDERED: Tubing IV Secondary IV ONE (10:54)
[2016-05-31] MEDS ORDERED: D5 1/2NS 1000ml IV ONE (10:54)
--- NOTE | 2016-06-01 00:48 | Discharge Summary ---
DATE OF ADMISSION: 05/27/2016 DATE OF DISCHARGE: 05/31/2016 CHIEF COMPLAINT: The patient had two episodes of seizure at home. HISTORY OF PRESENT ILLNESS: This is a 65-year-old Arabic female, who was admitted with repeated seizures at home. The patient did have a history of seizures before. HOSPITAL COURSE: The patient was admitted to telemetry bed. She was seen by Dr. Erasmo Wraner in Neurology consultation. Her valproic acid level came back low at 42. The patient valproic's acid was increased and the level on 05/30/2016 was 95. The patient also was on Keppra and the dose of that was increased as well. The patient had also urinary tract infection with E. coli and she received intravenous antibiotics. She had poor appetite for which she was started on Marinol 2.5 mg twice a day and that improved her appetite. DISCHARGE INSTRUCTIONS: She was finally discharged home with home care. DISCHARGE DIAGNOSES: 1. Repeated seizures. 2. Urinary tract infection. 3. Anorexia. DISCHARGE MEDICATIONS: Please refer to discharge medication list. René Dunn M.D. DR: CHUY JOB#: [id number] CC:
--- NOTE | 2016-06-02 19:58 | Electroencephalogram ---
DATE OF PROCEDURE: 05/27/2016 REFERRING PHYSICIAN: René Dunn M.D. HISTORY: The patient is a 65 years old female with a status epilepticus currently maintained on Keppra, Depakote, and Ativan. During the recording, the patient described as drowsy, stuporous, and poorly cooperative. EEG was done using 18 electrodes placed on scalp to scalp, scalp to ear montages according to 10/20 International System. Throughout the recording, background activity consists of low voltage 4 to 7 hertz slow wave activities frequently override by fast or low voltage beta activities with intermittent once in two to three second sharp wave high-voltage sharp wave transients over the left hemisphere. continuous 3-6 hertz activities noted in the left temporal area. No clinical signs of seizure activity described. IMPRESSION: Left-sided periodic lateralizing epileptiform discharges with epileptiform focus with a transient episode of generalized seizure emanating from the left temporal area. COMMENT: Above abnormality indicate interictal epileptiform activity predominantly in left temporal area. Clinical correlation is necessary. Erasmo Warner M.D. DR: Noe JOB#: [id number] CC:
== END 2016-05-31 10:55 | disposition home health service (06) | DRG 101 ==
LOC: EDBD 22:15 → EMR 23:10 → EDBEDREQ 05-27 05:35 → 2E 05-27 05:36 → EDBEDREQ 05-27 06:08 → 2E 05-29 20:10
DX: G40.419 Other generalized epilepsy and epileptic syndromes, intractable, without status epilepticus (principal); N39.0 Urinary tract infection, site not specified; I10 Essential (primary) hypertension; Z68.1 Body mass index [BMI] 19.9 or less, adult; R63.0 Anorexia; F79 Unspecified intellectual disabilities; E78.5 Hyperlipidemia, unspecified; Z88.1 Allergy status to other antibiotic agents; D63.8 Anemia in other chronic diseases classified elsewhere; B96.20 Unspecified Escherichia coli [E. coli] as the cause of diseases classified elsewhere
CPT/HCPCS: 36415; 80053; 80164; 80299; 81001; 85025; 87086; 87181; 93005; 95819

== ENCOUNTER 2016-07-19 18:56 | Inpatient (IN) | payer MEDICARE, MEDICAID ==
[~2016-07-19] VITALS: Ht 160 cm; Wt 40.4 kg
[~2016-07-19 18:56] MED LIST: ASPIR 8181 MG ORAL; ATORVASTATIN CA20 MG ORAL; DEPAKENE L250 MG/5 M ORAL; DEPAKOTE ER500 MG ORAL; KEPPRA LIQ100 MG/1 M ORAL; LEVETIRACETAM500 MG ORAL; PANTOPRAZOLE SO40 MG ORAL
[2016-07-19 19:05] VITALS: BP 117/78
--- NOTE | 2016-07-19 19:12 | Emergency Room Report ---
History of Present Illness General Chief Complaint: Seizure Source: Patient, Medical Record Present Illness HPI Patient is a 66-year-old female brought in by EMS after the seizures. Patient had several seizures today. Patient was noted to be seizing by EMS. Patient given Versed 5 mg IV. Patient was noted to be postictal after seizure. She had prior history of seizure disorder which is long-standing for most of her life life. The patient last hospitalized approximately 2 months ago. The patient had not been ill recently. Allergies: Coded Allergies: LEVOFLOXACIN (Verified Allergy, Unknown, 05/26/16) Patient History Past Medical History: see triage record Reviewed Nursing Documentation: PMH: Agreed, PSxH: Agreed Nursing Documentation-PMH Past Medical History: No History, Except For Hx Hypertension: Yes Hx Cancer: No Hx Gastrointestinal Problems: No Hx Neurological Problems: Yes Hx Seizures: Yes Review of Systems All Other Systems: negative except mentioned in HPI Physical Exam Vital Signs Date Time Temp Pulse Resp B/P Pulse Ox O2 Delivery O2 Flow Rate FiO2 07/19/16 18:58 98.2 92 16 117/78 98 Room Air Sp02 EP Interpretation: reviewed, normal General Appearance: normal inspection, well appearing, no apparent distress, alert, GCS 15, non-toxic Head: atraumatic ENT: normal ENT inspection, hearing grossly normal, normal voice Neck: normal inspection, full range of motion, supple, no bony tend Respiratory: normal inspection, lungs clear, normal breath sounds, no respiratory distress, no retraction, no wheezing Cardiovascular #1: regular rate, rhythm, no edema Gastrointestinal: normal inspection, normal bowel sounds, non tender, soft, no guarding, no hernia Genitourinary: no CVA tenderness Musculoskeletal: normal inspection, back normal, normal range of motion Neurologic: other - somnolent , gag present Psychiatric: normal inspection, judgement/insight normal, mood/affect normal Skin: normal inspection, normal color, no rash Medical Decision Making Diagnostic Impression: Primary Impression: Seizure disorder Additional Impression: UTI (urinary tract infection) ER Course Patient presented for seizure. Differential diagnosis included cysticercosis, electrolyte abnormality, mass lesion, or cranial hemorrhage, medication noncompliance.Because of complexity of patient's case laboratory testing and imaging studies were ordered. Laboratory testing showed a therapeutic Depakote level. Patient noted be also taking Keppra. Patient was given IV Rocephin would've for what appeared to be urinary tract infection laboratory testing. Dr. René Dunn was contacted for inpatient management Labs Test 07/19/16 20:10 White Blood Count 4.7 K/UL (4.8-10.8) Red Blood Count 3.37 M/UL (4.20-5.40) Hemoglobin 11.9 G/DL (12.0-16.0) Hematocrit 35.8 % (37.0-47.0) Mean Corpuscular Volume 106 FL (80-99) Mean Corpuscular Hemoglobin 35.4 PG (27.0-31.0) Mean Corpuscular Hemoglobin Concent 33.4 G/DL (32.0-36.0) Red Cell Distribution Width 13.1 % (11.6-14.8) Platelet Count 138 K/UL (150-450) Mean Platelet Volume 6.4 FL (6.5-10.1) Neutrophils (%) (Auto) 57.8 % (45.0-75.0) Lymphocytes (%) (Auto) 30.3 % (20.0-45.0) Monocytes (%) (Auto) 9.1 % (1.0-10.0) Eosinophils (%) (Auto) 0.7 % (0.0-3.0) Basophils (%) (Auto) 2.0 % (0.0-2.0) Sodium Level 138 mEQ/L (135-145) Potassium Level 3.9 mEQ/L (3.4-4.9) Chloride Level 97 mEQ/L (98-107) Carbon Dioxide Level 26 mEQ/L (20-30) Anion Gap 15 (5-15) Blood Urea Nitrogen 19 mg/dL (7-23) Creatinine 0.8 mg/dL (0.5-0.9) Estimat Glomerular Filtration Rate > 60 mL/min (>60) Glucose Level 153 mg/dL (74-106) Calcium Level 8.9 mg/dL (8.6-10.2) Total Bilirubin 0.3 mg/dL (0.0-1.2) Aspartate Amino Transf (AST/SGOT) 29 U/L (5-40) Alanine Aminotransferase (ALT/SGPT) 9 U/L (3-33) Alkaline Phosphatase 36 U/L (35-104) Troponin I < 0.30 ng/mL (<=0.30) Total Protein 6.6 g/dL (6.6-8.7) Albumin 3.9 g/dL (3.5-5.2) Globulin 2.7 g/dL Albumin/Globulin Ratio 1.4 (1.0-2.7) Salicylates Level < 1 mg/dL (10-30) Valproic Acid (Depakene) Level 88 ug/mL (50-100) EKG Diagnostic Results Rate: normal - 90 Rhythm: NSR ST Segments: no acute changes Rhythm Strip Diag. Results EP Interpretation: yes Rhythm: NSR, no PVC's, no ectopy Last Vital Signs Date Time Temp Pulse Resp B/P Pulse Ox O2 Delivery O2 Flow Rate FiO2 07/19/16 18:58 98.2 92 16 117/78 98 Room Air Status: unchanged Disposition: ADMITTED INPATIENT Condition: Serious aSad Larson July 19, 2016 19:12
[2016-07-19] MEDS ORDERED: KEPPRA500 M4 ORAL (19:18)
[2016-07-19] MEDS ORDERED: ATORVASTATIN CA20 MG ORAL (19:18)
[2016-07-19] MEDS ORDERED: ASPIRIN81 MG ORAL (19:18)
[2016-07-19] MEDS ORDERED: DEPAKOTE ER500 MG ORAL (19:18)
[2016-07-19] MEDS ORDERED: PANTOPRAZOLE SO20 MG ORAL (19:18)
[2016-07-19 20:42] LABS: EOSINOPHILS % (AUTO) 0.7 % (0.0-3.0); LYMPHOCYTES % (AUTO) 30.3 % (20.0-45.0); MEAN CORPUSCULAR HEMOGLOBIN 35.4 PG (27.0-31.0); MEAN CORPUSCULAR HGB CONC 33.4 G/DL (32.0-36.0); MEAN CORPUSCULAR VOLUME 106 FL (80-99); MEAN PLATELET VOLUME 6.4 FL (6.5-10.1); MONOCYTES % (AUTO) 9.1 % (1.0-10.0); NEUTROPHILS % (AUTO) 57.8 % (45.0-75.0); PLATELET COUNT 138 K/UL (150-450); RED BLOOD COUNT 3.37 M/UL (4.20-5.40); RED CELL DISTRIBUTION WIDTH 13.1 % (11.6-14.8); WHITE BLOOD COUNT 4.7 K/UL (4.8-10.8)
[2016-07-19 20:55] LABS: ALANINE AMINOTRANSFERASE 9 U/L (3-33); ALBUMIN/GLOBULIN RATIO 1.4 (1.0-2.7); ANION GAP 15 (5-15); ASPARTATE AMINO TRANSFERASE 29 U/L (5-40); CALCIUM 8.9 mg/dL (8.6-10.2); CARBON DIOXIDE 26 mEQ/L (20-30); CHLORIDE 97 mEQ/L (98-107); CREATININE 0.8 mg/dL (0.5-0.9); GLOMERULAR FILTRATION RATE > 60 mL/min (>60); HEMOLYSIS 8; POTASSIUM 3.9 mEQ/L (3.4-4.9); SODIUM 138 mEQ/L (135-145); TOTAL PROTEIN 6.6 g/dL (6.6-8.7); TROPONIN I < 0.30 ng/mL (<=0.30); VALPROIC ACID 88 ug/mL (50-100)
[2016-07-19 21:05] VITALS: BP 133/76
[2016-07-19] MEDS ORDERED: cefTRIAXone 1 GM in NS 55 ML IVPB ONE (21:45)
[2016-07-19] MEDS ORDERED: levETIRAcetam 500mg vial IV ONE (21:54)
[2016-07-19] MEDS ORDERED: levETIRAcetam 500 MG in D5W 110 ML IVPB ONE (22:00)
[2016-07-19] MEDS ORDERED: LORazepam Inj 2mg/ml 1ml IV PRN (22:30)
[2016-07-19] MEDS ORDERED: Zolpidem 5mg tab ORAL PRN (22:30)
[2016-07-19 22:55] VITALS: BP 138/62
[2016-07-20] VITALS: BP 154/74
[2016-07-20 04:00] VITALS: BP 116/64
[2016-07-20 07:33] VITALS: BP 128/76
--- NOTE | 2016-07-20 09:14 | Diagnostic Imaging Report ---
Indications: Altered mental status Technique: Spiral acquisitions obtained through the brain. Angled axial and coronal 5 x 5 mm slices were reconstructed. Total dose length product 1376 mGycm. CTDI vol(s) 70 mGy. Dose reduction achieved using automated exposure control Comparison: None Findings: There is age-related enlargement of ventricles and extra-axial CSF spaces. Normal baires-white differentiation. Intact calvarium. There is chronic appearing opacification of the mastoid air cells on the right. Visualized orbits are unremarkable. Included sinuses are unremarkable. There are dense basal ganglia calcifications. Impression: Age-related changes. 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
[2016-07-20] MEDS: Aspirin Baby 81mg ORAL SCH (09:45)
[2016-07-20] MEDS: Depakote ER 500mg tab ORAL SCH (09:45)
[2016-07-20 11:38] VITALS: BP 111/83
--- NOTE | 2016-07-20 12:58 | History & Physical ---
History and Physical History & Physicial DATE OF ADMISSION: 07/20/16 CHIEF COMPLAINT: seizure HISTORY OF PRESENT ILLNESS: This is a 65-year-old Bulgarian female with history of mental retardation, seizure disorder on keppra and dilantin who was BIBA because of seizure lasting 30 min. Per sister who lives w/ patient and witnessed the seizure the patients eyes rolled back and she had tonic clonic movements of her arms and legs. She was postictal after the seizure per family. She has not recently started any new medications. PAST MEDICAL HISTORY: HLD, Seizure d/o MEDICATIONS: Active Scripts Medications Dose Route/Sig Max Daily Dose Days Date Category Aspirin* (Aspirin) 81 Mg Tab.chew 81 Mg ORAL DAILY 07/19/16 Reported Atorvastatin Calcium* (Atorvastatin Calcium) 20 Mg Tablet 20 Mg ORAL BEDTIME 07/19/16 Reported Pantoprazole 20 Mg Tablet.dr 20 Mg ORAL DAILY 07/19/16 Reported Depakote Er* (Divalproex Sodium) 500 Mg Tab.er.24h 500 Mg ORAL DAILY 07/19/16 Reported Keppra (Levetiracetam) 500 Mg Tablet 500 Mg ORAL EVERY 12 HOURS 07/19/16 Reported Keppra (Levetiracetam) 100 Mg/1 Ml Solution 750 Mg ORAL Q12HR 30 05/31/16 Rx Valproic Acid 250 Mg/5 Ml Solution 500 Mg ORAL Q12HR 30 05/31/16 Rx Aspir 81* (Aspirin) 81 Mg Tablet.dr 81 Mg ORAL DAILY 05/26/16 Reported Atorvastatin Calcium* (Atorvastatin Calcium) 20 Mg Tablet 20 Mg ORAL DAILY 05/26/16 Reported Pantoprazole* (Pantoprazole) 40 Mg Tablet. 40 Mg ORAL DAILY 05/26/16 Reported ALLERGIES: Levofloxacin. SOCIAL HISTORY: The patient lives with sister as mentioned. No history of smoking or alcohol abuse. REVIEW OF SYSTEMS: Unobtainable. PHYSICAL EXAMINATION: Vital Signs Date Time Temp Pulse Resp B/P Pulse Ox O2 Delivery O2 Flow Rate FiO2 07/19/16 18:58 98.2 92 16 117/78 98 Room Air 07/19/16 19:05 10.0 GENERAL: NAD. awake HEENT: Narcissa conjunctivae. Anicteric sclerae. NECK: Supple. LUNGS: Clear to auscultation. HEART: S1 and S2 without murmurs or rubs. ABDOMEN: Soft and nontender. EXTREMITIES: No cyanosis or edema. LABORATORY AND DIAGNOSTIC DATA: Labs Test 07/19/16 20:10 07/20/16 14:00 White Blood Count 4.7 K/UL (4.8-10.8) Red Blood Count 3.37 M/UL (4.20-5.40) Hemoglobin 11.9 G/DL (12.0-16.0) Hematocrit 35.8 % (37.0-47.0) Mean Corpuscular Volume 106 FL (80-99) Mean Corpuscular Hemoglobin 35.4 PG (27.0-31.0) Mean Corpuscular Hemoglobin Concent 33.4 G/DL (32.0-36.0) Red Cell Distribution Width 13.1 % (11.6-14.8) Platelet Count 138 K/UL (150-450) Mean Platelet Volume 6.4 FL (6.5-10.1) Neutrophils (%) (Auto) 57.8 % (45.0-75.0) Lymphocytes (%) (Auto) 30.3 % (20.0-45.0) Monocytes (%) (Auto) 9.1 % (1.0-10.0) Eosinophils (%) (Auto) 0.7 % (0.0-3.0) Basophils (%) (Auto) 2.0 % (0.0-2.0) Sodium Level 138 mEQ/L (135-145) Potassium Level 3.9 mEQ/L (3.4-4.9) Chloride Level 97 mEQ/L (98-107) Carbon Dioxide Level 26 mEQ/L (20-30) Anion Gap 15 (5-15) Blood Urea Nitrogen 19 mg/dL (7-23) Creatinine 0.8 mg/dL (0.5-0.9) Estimat Glomerular Filtration Rate > 60 mL/min (>60) Glucose Level 153 mg/dL (74-106) Calcium Level 8.9 mg/dL (8.6-10.2) Total Bilirubin 0.3 mg/dL (0.0-1.2) Aspartate Amino Transf (AST/SGOT) 29 U/L (5-40) Alanine Aminotransferase (ALT/SGPT) 9 U/L (3-33) Alkaline Phosphatase 36 U/L (35-104) Troponin I < 0.30 ng/mL (<=0.30) Total Protein 6.6 g/dL (6.6-8.7) Albumin 3.9 g/dL (3.5-5.2) Globulin 2.7 g/dL Albumin/Globulin Ratio 1.4 (1.0-2.7) Salicylates Level < 1 mg/dL (10-30) Valproic Acid (Depakene) Level 88 ug/mL (50-100) Urine Color Pale yellow Urine Appearance Clear Urine pH 7 (4.5-8.0) Urine Specific [place] 1.010 (1.005-1.035) Urine Protein Negative (NEGATIVE) Urine Glucose (UA) Negative (NEGATIVE) Urine Ketones Negative (NEGATIVE) Urine Occult Blood 4+ (NEGATIVE) Urine Nitrite Negative (NEGATIVE) Urine Bilirubin Negative (NEGATIVE) Urine Urobilinogen Normal MG/DL (0.0-1.0) Urine Leukocyte Esterase Negative (NEGATIVE) Urine RBC 10-15 /HPF (0 - 2) Urine WBC 0-2 /HPF (0 - 2) Urine Squamous Epithelial Cells Few /LPF (NONE/OCC) Urine Bacteria Few /HPF (NONE) ASSESSMENT: Breakthrough seizure - possibly secondary to a UTI Possible UTI Mental retardation plan tele Neuro consult c/w keppra and Dilantin (checked Dilantin levels which is normal) check Ua abx - off add new anticonvulsant, Vimpat starting 50 mg b.i.d., but to be titrated up to 100 b.i.d. DAMARIS KIM M.D. July 20, 2016 12:58
--- NOTE | 2016-07-20 13:44 | Neurology Progress Note ---
Objective Physical Exam Last Vital Signs Date Time Temp Pulse Resp B/P Pulse Ox O2 Delivery O2 Flow Rate FiO2 07/20/16 12:00 116 07/20/16 11:38 97.1 18 111/83 95 Room Air 07/19/16 19:05 10.0 Laboratory Tests Test 07/19/16 20:10 White Blood Count 4.7 K/UL (4.8-10.8) L Red Blood Count 3.37 M/UL (4.20-5.40) L Hemoglobin 11.9 G/DL (12.0-16.0) L Hematocrit 35.8 % (37.0-47.0) L Mean Corpuscular Volume 106 FL (80-99) H Mean Corpuscular Hemoglobin 35.4 PG (27.0-31.0) H Mean Corpuscular Hemoglobin Concent 33.4 G/DL (32.0-36.0) Red Cell Distribution Width 13.1 % (11.6-14.8) Platelet Count 138 K/UL (150-450) L Mean Platelet Volume 6.4 FL (6.5-10.1) L Neutrophils (%) (Auto) 57.8 % (45.0-75.0) Lymphocytes (%) (Auto) 30.3 % (20.0-45.0) Monocytes (%) (Auto) 9.1 % (1.0-10.0) Eosinophils (%) (Auto) 0.7 % (0.0-3.0) Basophils (%) (Auto) 2.0 % (0.0-2.0) Sodium Level 138 mEQ/L (135-145) Potassium Level 3.9 mEQ/L (3.4-4.9) Chloride Level 97 mEQ/L (98-107) L Carbon Dioxide Level 26 mEQ/L (20-30) Anion Gap 15 (5-15) Blood Urea Nitrogen 19 mg/dL (7-23) Creatinine 0.8 mg/dL (0.5-0.9) Estimat Glomerular Filtration Rate > 60 mL/min (>60) Glucose Level 153 mg/dL (74-106) H Calcium Level 8.9 mg/dL (8.6-10.2) Total Bilirubin 0.3 mg/dL (0.0-1.2) Aspartate Amino Transf (AST/SGOT) 29 U/L (5-40) Alanine Aminotransferase (ALT/SGPT) 9 U/L (3-33) Alkaline Phosphatase 36 U/L (35-104) Troponin I < 0.30 ng/mL (<=0.30) Total Protein 6.6 g/dL (6.6-8.7) Albumin 3.9 g/dL (3.5-5.2) Globulin 2.7 g/dL Albumin/Globulin Ratio 1.4 (1.0-2.7) Salicylates Level < 1 mg/dL (10-30) L Valproic Acid (Depakene) Level 88 ug/mL (50-100) Impression/Recommendations Recommendations #[id number] DAVID HURST July 20, 2016 13:44
[2016-07-20] MEDS: levETIRAcetam 500mg/5ml Liquid ORAL SCH ×2 (14:12→21:44)
[2016-07-20 14:25] LABS: APPEARANCE,URINE CLEAR; KETONES,URINE NEGATIVE (NEGATIVE); LEUKOCYTE ESTERASE ,URINE NEGATIVE (NEGATIVE); NITRITE,URINE NEGATIVE (NEGATIVE); PH,URINE 7 (4.5-8.0); PROTEIN,URINE NEGATIVE (NEGATIVE); UROBILINOGEN,URINE NORMAL MG/DL (0.0-1.0)
[2016-07-20] MEDS: Lacosamide 50mg tablet ORAL SCH ×2 (14:32→21:24)
[2016-07-20 14:43] LABS: BACTERIA,URINE FEW /HPF; SQUAMOUS EPITHELIAL CELL,UR FEW /LPF (NONE/OCC); WBC,URINE 0-2 /HPF (0 - 2)
[2016-07-20 15:30] VITALS: BP 128/74
--- NOTE | 2016-07-20 18:35 | Cardiology Report ---
APPROVED REPORT EKG Measurement Heart [id number] Normal sinus rhythm Normal ECG
[2016-07-20 20:00] VITALS: BP 112/59
--- NOTE | 2016-07-20 20:17 | Consultation ---
DATE OF CONSULTATION: 07/20/2016 NEUROLOGICAL CONSULTATION CONSULTING PHYSICIAN: Erasmo Warner M.D. REQUESTING PHYSICIAN: René Dunn M.D. HISTORY OF PRESENT ILLNESS: This is a 66-year-old female with a chronic seizure disorder, known to us from a previous assessment, now presenting with exacerbation of seizure activity. The patient was reported to have at least several episodes on the day of admission and this was described also by PMS. She was treated with Versed 5 mg IV and no further seizure activities described. On admission, her vital signs were stable. Blood pressure 117/78. The patient was postictal. Lab work was obtained revealing CBC study with low platelets 138,000 and mild anemia. Chemistry panel, blood sugar 153. Toxicology panel with valproic acid of 88. Stat CT of the brain was obtained revealing an age-related changes, but there is no evidence of acute abnormalities, there was a right-sided opacified mastoid compatible to chronic mastoid disease. The patient was seen in this hospital a month ago when she was admitted with exacerbation of chronic seizure disorder. EEG was obtained. This revealed left-sided PLEDs epileptiform focus, emanating from the left temporal area. The patient is known to have a mental retardation with a chronic seizure disorder, who was maintained on Depakote 500 mg daily and Keppra 500 mg b.i.d. The patient was recommended to increase dose to 750 mg b.i.d. of Keppra and Depakote 500 mg b.i.d. Subsequently, there were no further seizure activities, but the patient became increasingly sleepy, was seen by her family physician, who reduced dose back to original doses. PAST MEDICAL HISTORY: There is a history of mental retardation, history of chronic seizure disorder, and history of hyperlipidemia. MEDICATIONS: Treatment prior to admission also included aspirin, atorvastatin, pantoprazole, as well as Depakote and Keppra. ALLERGIES: Levofloxacin. FAMILY HISTORY: No evidence of seizure activities in the family. SOCIAL HISTORY: She has significant level of mental retardation. According to family, she is in a level of 3-age-old child. She remained ambulatory and able to dress herself. REVIEW OF SYSTEMS: The patient is non-verbalizing. PHYSICAL EXAMINATION: GENERAL: The patient is well-developed, but cachectic young-appearing lady, who is lying in bed. There is family at the bedside. VITAL SIGNS: Blood pressure 118/70, respirations 14, and temperature 98.1 degrees. HEENT: Head, normocephalic. There is no evidence of trauma. Eyes, ears, and throat are clear. NECK: Rigid in all directions. MUSCULOSKELETAL: Unremarkable. There is no deformities noted. Peripheral pulses 1+ and symmetric. MENTAL STATUS: The patient is alert. She responded with eye contact and follows simple commands when given command in her [place] English language. CRANIAL NERVE II: Pupils both responding to light and accommodation. Extraocular movement intact. CRANIAL NERVE V: Normal corneal responses. CRANIAL NERVE VII: There is no facial asymmetry. CRANIAL NERVE VIII: Slight decrease in hearing. CRANIAL NERVES IX THROUGH XII: Positive gag response. Tongue is in midline. Symmetric palate elevation. Normal gag. MOTOR EXAMINATION: Diffuse rigidity. Able to with a 5/5 in both upper lower extremities. She attempted to flex both arms and legs. Gait not tested. Deep reflexes 1+ in biceps, triceps, and knee and ankle jerks. Plantar responses negative. Babinski, there is a mute response. SENSORY EXAMINATION: The patient was withdrawing to pin stimulation in both arms and legs. IMPRESSION: 1. The patient is a 66-year-old female with advanced development delay and chronic seizure disorder, presenting with breakthrough exacerbation of seizure activities. 2. History of hyperlipidemia. DISCUSSION: The patient has evidence of breakthrough seizures on both occasions. Unfortunately, she was unable to tolerate higher doses of Keppra and Depakote, her current Depakote level though is therapeutic. At this time, we will add new anticonvulsant, Vimpat starting 50 mg b.i.d., but to be titrated up to 100 b.i.d. while she will continue on her previous anticonvulsants. I have discussed this with the family, who agreed. Thank you for allowing me to see this interesting patient in neurological consultation. Erasmo Warner M.D. DR: RODERICK JOB#: [id number] CC:
[2016-07-20] MEDS: Atorvastatin 20mg tab ORAL SCH (21:24)
[2016-07-21] VITALS: BP 114/77
[2016-07-21 04:00] VITALS: BP 126/73
[2016-07-21 08:00] VITALS: BP 120/81
[2016-07-21] MEDS: Lacosamide 50mg tablet ORAL SCH ×2 (08:39→21:04)
[2016-07-21] MEDS: Aspirin Baby 81mg ORAL SCH (08:39)
[2016-07-21] MEDS: Depakote ER 500mg tab ORAL SCH (08:39)
[2016-07-21] MEDS: levETIRAcetam 500mg/5ml Liquid ORAL SCH ×2 (08:40→21:05)
[2016-07-21 11:56] VITALS: BP 113/75
--- NOTE | 2016-07-21 12:50 | Neurology Progress Note ---
Interim History Interim History ROS Limited/Unobtainable: Yes Complaints: ok Events: no sz noted Objective Physical Exam Last Vital Signs Date Time Temp Pulse Resp B/P Pulse Ox O2 Delivery O2 Flow Rate FiO2 07/21/16 12:00 74 07/21/16 11:56 97.0 17 113/75 97 Room Air 07/19/16 19:05 10.0 Laboratory Tests Test 07/20/16 14:00 Urine Color Pale yellow Urine Appearance Clear Urine pH 7 (4.5-8.0) Urine Specific [place] 1.010 (1.005-1.035) Urine Protein Negative (NEGATIVE) Urine Glucose (UA) Negative (NEGATIVE) Urine Ketones Negative (NEGATIVE) Urine Occult Blood 4+ (NEGATIVE) H Urine Nitrite Negative (NEGATIVE) Urine Bilirubin Negative (NEGATIVE) Urine Urobilinogen Normal MG/DL (0.0-1.0) Urine Leukocyte Esterase Negative (NEGATIVE) Urine RBC 10-15 /HPF (0 - 2) H Urine WBC 0-2 /HPF (0 - 2) Urine Squamous Epithelial Cells Few /LPF (NONE/OCC) Urine Bacteria Few /HPF (NONE) General: no acute distress Head: atraumatic Neck: no rigidity Neurologic Exam Mental Status: awake, alert, other - nonverbal confused Speech: other Language: other Cranial Nerve II: fundus normal Cranial Nerves III, IV, : PERRLA, EOMI, pupils Cranial Nerve V: normal facial sensations, temporales function normal, masseters function normal, pterygoids function normal Cranial Nerve VII: no facial asymmetry, normal facial expressions Cranial Nerve VIII: normal hearing, no nystagmus Cranial Nerve IX: normal palate elevation, gag response Cranial Nerve X: no voice hoarseness Cranial Nerve XII: tongue midline, no tongue atrophy/fasciculations Motor System: no involuntary movement, no muscle wasting Sensory: normal pinprick Coordination: other Deep Tendon Reflexes: 0 ankle (L), 0 ankle (R), 0 bicep (L), 0 bicep (R), 0 brachioradialis (L), 0 brachioradialis (R), 0 knee (L), 0 knee (R), 0 tricep (L) , 0 tricep (R) Impression/Recommendations Problems: (1) chronic seizure disorder intractable, exacerbation Status: stable Recommendations #[id number] vimpat 50mg bid, titrate up 100mg bid cont present rx DAVID HURST July 21, 2016 12:50
[2016-07-21 16:00] VITALS: BP 118/66
--- NOTE | 2016-07-21 16:37 | Internal Med Progress Note ---
Subjective Physician Name TariqDamaris berry Attending Physician René Dunn Current Medications Medications (Trade) Dose Ordered Sig/Gama Route PRN Reason Start Time Stop Time Status Last Admin Dose Admin Acetaminophen (Tylenol) 650 mg Q4H PRN ORAL Mild Pain (Pain Scale 1-3) 07/19/16 22:30 08/18/16 22:29 Aspirin (ASA) 81 mg DAILY ORAL 07/20/16 09:00 08/19/16 08:59 07/21/16 08:39 Atorvastatin Calcium (Lipitor) 20 mg BEDTIME ORAL 07/20/16 21:00 08/19/16 20:59 07/20/16 21:24 Dextrose (Dextrose 50%) STAT PRN IV Hypoglycemia 07/19/16 22:30 08/18/16 22:29 Divalproex Sodium (Depakote ER) 500 mg DAILY ORAL 07/20/16 09:00 08/19/16 08:59 07/21/16 08:39 Lacosamide (Vimpat) 50 mg Q12HR ORAL 07/20/16 14:30 08/19/16 14:29 07/21/16 08:39 Levetiracetam (Keppra) 750 mg Q12HR ORAL 07/20/16 14:00 08/19/16 13:59 07/21/16 08:40 Lorazepam (Ativan 2mg/ml 1ml) 2 mg Q4H PRN IV For seizures 07/19/16 22:30 07/26/16 22:29 Pantoprazole (Protonix) 40 mg DAILY ORAL 07/20/16 09:00 08/19/16 08:59 07/21/16 08:39 Zolpidem Tartrate (Ambien) 5 mg DAILYPRN PRN ORAL Insomnia 07/19/16 22:30 08/18/16 22:29 Allergies: Coded Allergies: LEVOFLOXACIN (Verified Allergy, Unknown, 05/26/16) ROS Limited/Unobtainable: Yes Subjective patient has mental retardation so ROS limited no seizures eating Objective Last Vital Signs Date Time Temp Pulse Resp B/P Pulse Ox O2 Delivery O2 Flow Rate FiO2 07/21/16 12:00 74 07/21/16 11:56 97.0 17 113/75 97 Room Air 07/19/16 19:05 10.0 General Appearance: WD/WN, no apparent distress EENT: PERRL/EOMI, normal ENT inspection Neck: normal alignment, supple Cardiovascular: normal rate, regular rhythm Respiratory/Chest: lungs clear, normal breath sounds Abdomen: non tender, soft Extremities: normal range of motion, non-tender Edema: mild edema Neurologic: alert, responsive Microbiology Date/Time Source Procedure Growth Status 07/19/16 20:40 Blood Blood Culture - Preliminary NO GROWTH AFTER 24 HOURS Resulted 07/19/16 20:30 Blood Blood Culture - Preliminary NO GROWTH AFTER 24 HOURS Resulted 07/20/16 14:00 Urine,Clean Catch Urine Culture - Preliminary Resulted Intake and Output 07/20/16 07/21/16 19:00 07:00 Intake Total 470 ml 100 ml Output Total 350 ml Balance 120 ml 100 ml Intake Oral 470 ml 100 ml Output Urine Total 350 ml # Voids 3 Assessment/Plan Assessment/Plan ASSESSMENT: Breakthrough seizure - possibly secondary to a UTI Mental retardation plan tele Neuro recs appreciated c/w keppra and Dilantin (checked Dilantin levels which is normal) Ua - neg abx - off vimpat 50mg bid, titrate up 100mg bid DAMARIS KIM M.D. July 21, 2016 16:37
[2016-07-21 20:00] VITALS: BP 136/76
[2016-07-21] MEDS: Atorvastatin 20mg tab ORAL SCH (21:04)
[2016-07-22] VITALS: BP 131/78
[2016-07-22 04:00] VITALS: BP 128/89
[2016-07-22 08:00] VITALS: BP 132/76
[2016-07-22] MEDS: Depakote ER 500mg tab ORAL SCH (08:23)
[2016-07-22] MEDS: levETIRAcetam 500mg/5ml Liquid ORAL SCH (08:23)
[2016-07-22] MEDS: Lacosamide 50mg tablet ORAL SCH (08:24)
[2016-07-22] MEDS: Aspirin Baby 81mg ORAL SCH (08:24)
[2016-07-22 08:46] LABS: ANION GAP 12 (5-15); CALCIUM 8.9 mg/dL (8.6-10.2); CARBON DIOXIDE 28 mEQ/L (20-30); CHLORIDE 105 mEQ/L (98-107); CREATININE 0.6 mg/dL (0.5-0.9); GLOMERULAR FILTRATION RATE > 60 mL/min (>60); HEMOLYSIS 4; MAGNESIUM 2.3 mg/dL (1.7-2.5); POTASSIUM 4.2 mEQ/L (3.4-4.9); SODIUM 145 mEQ/L (135-145)
[2016-07-22 12:00] VITALS: BP 128/68
--- NOTE | 2016-07-22 13:25 | Discharge Summary ---
Discharge Summary Hospital Course Date of Admission July 19, 2016 at 21:25 Date of Discharge Admitting Diagnosis recurrent seizures HPI Humaira Castro is a 66 year old female who was admitted on July 19, 2016 at 21:25 for Recurrent Seizure. patient had a breakthrough seizure despite being on keppra and Dilantin. She was seen by Dr. Alonso and started on Vimpat 100mg PO BID. Hospital Course Humaira Castro is a 66 year old female who was admitted on July 19, 2016 at 21:25 for Recurrent Seizure. patient had a breakthrough seizure despite being on keppra and Dilantin. She was seen by Dr. Alonso and started on Vimpat 100mg PO BID. Discharge Condition Upon Discharge: stable Discharge Disposition Patient was discharged to HOME Discharge Diagnoses: DAMARIS KIM M.D. July 22, 2016 13:25
[2016-07-22] MEDS ORDERED: VIMPAT100 MG PO (13:28)
--- NOTE | 2016-07-22 13:29 | Discharge Instructions ---
Discharge Instructions Discharge Instructions Follow up with: PCP Call MD/Return to Hospital if: has recurrent seizures Diet: regular Resume Normal Activity?: Yes For Congestive Heart Failure Reminder Report to your physician any weight gain of 5 pounds or more in one week. DAMARIS KIM M.D. July 22, 2016 13:29
[2016-07-22 16:00] VITALS: BP 110/76
== END 2016-07-22 17:56 | disposition home or self-care (01) | DRG 101 ==
LOC: EDBD 18:56 → EMR 19:26 → 2E 21:25 → EDBEDREQ 21:37
DX: G40.919 Epilepsy, unspecified, intractable, without status epilepticus (principal); N39.0 Urinary tract infection, site not specified; F79 Unspecified intellectual disabilities; E78.5 Hyperlipidemia, unspecified
CPT/HCPCS: 36415; 70450; 80048; 80053; 80164; 80329; 81003; 82962; 83735; 84484; 85025; 87040; 87086; 93005